=== PATIENT | female | born 2000 | race Two or more races ===

== ENCOUNTER 2022-02-27 21:03 | Inpatient (IN) | payer OTHER ==
[~2022-02-27] VITALS: Ht 149.9 cm; Wt 45.4 kg
[2022-02-28] MEDS ORDERED: PRENATAL + DHA1 EAC1 PO (12:49)
== END 2022-03-03 17:38 | disposition home or self-care (01) | DRG 833 ==
LOC: LDR 21:03
PROVIDERS: ADMIT Obstetrics & Gynecology Obstetrics; ATTEND Obstetrics & Gynecology Obstetrics
PROC: 4A1HXCZ Monitoring of Products of Conception, Cardiac Rate, External Approach (ICD-10-PCS; principal; 2022-02-27)
PROC: BY4FZZZ Ultrasonography of Third Trimester, Single Fetus (ICD-10-PCS; 2022-02-28)
PROC: BU4CZZZ Ultrasonography of Uterus and Ovaries (ICD-10-PCS; 2022-02-28)
DX: O60.03 Preterm labor without delivery, third trimester (principal); O35.10X0 Maternal care for (suspected) chromosomal abnormality in fetus, unspecified, not applicable or unspecified; Z3A.28 28 weeks gestation of pregnancy; Z20.822 Contact with and (suspected) exposure to COVID-19

== ENCOUNTER 2022-03-09 18:47 | Inpatient (IN) | payer OTHER ==
[~2022-03-09] VITALS: Ht 149.9 cm; Wt 45.4 kg
[~2022-03-09 18:47] MED LIST: PRENATAL + DHA1 EAC1 PO
== END 2022-03-11 15:14 | disposition home or self-care (01) | DRG 833 ==
LOC: OBS/DEL 18:47 → LDR 03-10 17:48
PROVIDERS: ADMIT Obstetrics & Gynecology Obstetrics; ATTEND Obstetrics & Gynecology Obstetrics
PROC: 4A1HXCZ Monitoring of Products of Conception, Cardiac Rate, External Approach (ICD-10-PCS; principal; 2022-03-10)
DX: O26.893 Other specified pregnancy related conditions, third trimester (principal); R10.2 Pelvic and perineal pain; Z3A.29 29 weeks gestation of pregnancy; Z20.822 Contact with and (suspected) exposure to COVID-19

== ENCOUNTER 2022-03-22 20:59 | Inpatient (IN) | payer OTHER ==
[~2022-03-22] VITALS: Ht 121.9 cm; Wt 45.4 kg
[2022-03-22] MEDS ORDERED: NIFEDIPINE20 MG PO (21:57)
== END 2022-04-04 19:38 | disposition home or self-care (01) | DRG 833 ==
LOC: OBS/DEL 20:59 → LDR 03-23 07:52 → OBS/DEL 03-23 07:52 → LDR 04-04 19:38
PROVIDERS: ADMIT Obstetrics & Gynecology Obstetrics; ATTEND Obstetrics & Gynecology Obstetrics
PROC: 4A1HXCZ Monitoring of Products of Conception, Cardiac Rate, External Approach (ICD-10-PCS; principal; 2022-03-23)
PROC: BY4FZZZ Ultrasonography of Third Trimester, Single Fetus (ICD-10-PCS; 2022-03-23)
PROC: BY4FZZZ Ultrasonography of Third Trimester, Single Fetus (ICD-10-PCS; 2022-03-28)
DX: O23.43 Unspecified infection of urinary tract in pregnancy, third trimester (principal); Z3A.31 31 weeks gestation of pregnancy; Z20.822 Contact with and (suspected) exposure to COVID-19

== ENCOUNTER 2022-04-16 08:56 | Inpatient (IN) | payer OTHER ==
[~2022-04-16] VITALS: Ht 149.9 cm; Wt 2.7 kg
[~2022-04-16 08:56] MED LIST changes: +NIFEDIPINE20 MG PO
== END 2022-04-25 14:30 | disposition home or self-care (01) | DRG 785 ==
LOC: LDR 08:56 → OB/GYN 04-22 14:48
PROVIDERS: ADMIT Obstetrics & Gynecology Obstetrics; ATTEND Obstetrics & Gynecology Obstetrics
PROC: 4A1HXCZ Monitoring of Products of Conception, Cardiac Rate, External Approach (ICD-10-PCS; 2022-04-16)
PROC: BY4FZZZ Ultrasonography of Third Trimester, Single Fetus (ICD-10-PCS; 2022-04-17)
PROC: BU4CZZZ Ultrasonography of Uterus and Ovaries (ICD-10-PCS; 2022-04-17)
PROC: 0UB70ZZ Excision of Bilateral Fallopian Tubes, Open Approach (ICD-10-PCS; 2022-04-22)
PROC: 10D00Z1 Extraction of Products of Conception, Low, Open Approach (ICD-10-PCS; principal; 2022-04-22 10:00)
DX: O36.8130 Decreased fetal movements, third trimester, not applicable or unspecified (principal); O26.843 Uterine size-date discrepancy, third trimester; O34.211 Maternal care for low transverse scar from previous cesarean delivery; Z3A.35 35 weeks gestation of pregnancy; Z37.0 Single live birth; Z20.822 Contact with and (suspected) exposure to COVID-19; Z30.2 Encounter for sterilization